=== PATIENT | female | born 1995 | race Caucasian/White ===

== ENCOUNTER 2017-07-15 | Emergency (ER) | payer OTHER, BC ==
[~2017-07-15] VITALS: Ht 157.5 cm; Wt 91.8 kg
[2017-07-15 00:05] VITALS: TEMP 36.7; Ht 157.5 cm; Wt 91.8 kg
--- NOTE | 2017-07-15 00:48 | EMERGENCY ROOM VISIT NOTE ---
History Report prepared by Ralph: Jennifer Forman Under the Supervision of: Dr. Mariana Vazquez D.O. First contact with patient: 00:33 Chief Complaint: SHORTNESS OF BREATH Stated Complaint: TIRED,HEAVY BREATHING,SHORT OF BREATH,LIGHT HEADED Nursing Triage Summary: patient states she was given prescription for prednisone for possible sinus swelling by her doctor and tonight was laying down and felt more tired than usual. patient states she felt like she was going to fall into a deep sleep and it scared her so she wanted to be evaulated. patient states she feels better since arrival to ED . hx of anxiety. History of Present Illness The patient is a 21 year old female who presents to the Emergency Room with complaints of sudden shortness of breath beginning this morning. The patient states that she was extremely fatigued today, and that when she went to lay down , she was instantly asleep. She also reports feeling light-headed. The patient reports taking 40 mg of prednisone beginning yesterday for sinus problems. She also states that she has anxiety, and that her symptoms have been exacerbated because of her anxiety. She states that she does not take preventative medication for her anxiety. Source of History: patient Onset: this morning Position: other (global) Quality: other (shortness of breath ) Timing: other (sudden) Associated Symptoms: + fatigue, + weakness (light-headed) Review of Systems See HPI for pertinent positives & negatives. A total of 10 systems reviewed and were otherwise negative. Past Medical & Surgical Medical Problems: (1) Asthma Family History Cancer Diabetes mellitus Heart disease Hypertension Social History Smoking Status: Never Smoker Alcohol Use: none Marital Status: single Occupation Status: [employer] student Allergies Coded Allergies: Nut Tree (Verified Allergy, Unknown, throat swelling, 07/15/17) Uncoded Allergies: ALMONDS (Allergy, Unknown, throat swelling, 07/15/17) CHERRIES (Allergy, Unknown, throat swelling, 07/15/17) TREE FRUIT (Allergy, Unknown, throat itching, 07/15/17) Physical Exam Vital Signs Date Time Temp Pulse Resp B/P (MAP) Pulse Ox O2 Delivery O2 Flow Rate FiO2 07/15/17 01:02 86 20 128/72 98 07/15/17 00:26 98 Room Air 07/15/17 00:05 36.7 95 20 145/84 98 Room Air Physical Exam General: Talks quickly and appears quite anxious. HEENT: Head - normocephalic and atraumatic Pupils are equal, round, and reactive to light. Extraocular eye muscles are intact, and sclera are anicteric. Nose - moist nasal mucosa without discharge. Mouth - moist buccal mucosa. Oropharynx is nonerythematous and there is no tonsillar exudate or edema noted. Neck: Supple; no JVD, nuchal rigidity, cervical lymphadenopathy. Heart: Regular rate and rhythm. There is a normal S1 and S2 with no murmurs, clicks, or gallops appreciated. Lungs: Clear to auscultation bilaterally with no wheezes, rales, or rhonchi. Abdomen: Soft, completely nontender, nondistended, with good bowel sounds. There are no palpable pulsatile masses or hepatosplenomegaly. There is no guarding, rigidity, or rebound noted. Extremities: No evidence of cyanosis, clubbing, or edema. There are easily palpable peripheral pulses. Skin: warm and dry with good turgor and no rashes. Medical Decision & Procedures ED Course 0037: Past medical records reviewed. The patient was evaluated in room B7. A complete history and physical exam was performed. I offered to have someone speak with the patient in regards to her anxiety but she declined. She states that she had previously talked to someone on-campus. 0100: Upon reevaluation, the patient is resting. I discussed findings and results with her. She verbalized agreement of the treatment plan. She was discharged home. Medical Decision The patient is a 21 year old female who presents to the ED with shortness of breath. Differential diagnosis includes anxiety and medication side effects. The patient has a history of anxiety and it seems that the doses of prednisone may have exacerbated her symptoms. She had no obvious signs of lethargy or fatigue while here in the emergency department. In fact, she was quite anxious. We spent some time talking about treatments for anxiety. She had previously tried Xanax. I recommended that she got a preventative medication and follow through with [facility]. She will stop taking the prednisone. She was told to return to the emergency department if she had any worsening symptoms. Medication Reconcilliation Current Medication List: was personally reviewed by me Blood Pressure Screening Patient's blood pressure: Elevated blood pressure Blood pressure disposition: Referred to PCP Impression Primary Impression: Medication side effect Additional Impression: Anxiety Scribe Attestation The scribe's documentation has been prepared under my direction and personally reviewed by me in its entirety. I confirm that the note above accurately reflects all work, treatment, procedures, and medical decision making performed by me. Departure Information Dispostion Home / Self-Care Referrals No Doctor, Assigned (PCP) Forms HOME CARE DOCUMENTATION FORM, IMPORTANT VISIT INFORMATION Patient Instructions Anxiety Body Response, Anxiety Disorder, My [facility] Additional Instructions Stop the prednisone Rest. Follow up with PCP and [facility] about anxiety REturn to the ER for any worsening symptoms Problem Qualifiers Primary Impression: Medication side effect Encounter type: initial encounter Qualified Codes: T88.7XXA - Unspecified adverse effect of drug or medicament, initial encounter
[2017-07-15 01:02] VITALS: BP 128/72; PULSE 86; O2SAT 98
== END 2017-07-15 01:02 | disposition home or self-care (01) ==
LOC: C.EDB 00:02
DX: T88.7XXA Unspecified adverse effect of drug or medicament, initial encounter (principal); X58.XXXA Exposure to other specified factors, initial encounter; F41.9 Anxiety disorder, unspecified; J45.909 Unspecified asthma, uncomplicated; Z80.9 Family history of malignant neoplasm, unspecified; Z83.3 Family history of diabetes mellitus; Z82.49 Family history of ischemic heart disease and other diseases of the circulatory system